=== PATIENT | female | born 1970 | race Caucasian/White ===

== ENCOUNTER 2016-04-11 11:30 | Emergency (ER) | payer BC, OTHER ==
[2016-04-11 11:42] VITALS: TEMP 97.8; BMI 25.0
--- NOTE | 2016-04-11 14:23 | PDOC ---
*Physical Exam - Vital Signs Last Vital Signs Temp Pulse Resp BP Pulse Ox 97.8 F 146/83 100 04/11/16 11:37 04/11/16 11:37 04/11/16 11:37 - Physical Exam Comments: 04/11/16 14:23 MIDLEVEL NOTE Pt seen by Midlevel Provider under my direct supervision. Pt interviewed and examined. Ancillary studies reviewed. I agree with plan as outlined by Midlevel Provider. 04/11/16 16:36 Laboratory Results - last 24 hr 04/11/16 04/11/16 14:50 14:50 WBC 9.3 RBC 4.69 Hgb 9.1 L Hct 30.1 L MCV 64.1 L MCHC 30.2 L RDW 19.0 H Plt Count 433 MPV 8.3 Neutrophils % 66.2 Lymphocytes % 24.7 Monocytes % 5.8 Eosinophils % 1.1 Basophils % 2.2 H Platelet Estimate Increased Platelet Comment No clumping noted Polychromasia 1+ Hypochromic-Microcytic 3+ Poikilocytosis 1+ Anisocytosis 1+ Microcytosis 2+ Target Cells Few Ovalocytes 1+ Sodium 139 Potassium 4.1 Chloride 105 Carbon Dioxide 24 Anion Gap 10 BUN 11 Creatinine 0.7 Creat Clearance w eGFR > 60 Random Glucose 84 Calcium 8.9 Total Bilirubin 0.3 AST 20 ALT 24 Alkaline Phosphatase 63 Creatine Kinase 122 Troponin I < 0.02 Total Protein 7.9 Albumin 4.0 EKG Normal sinus rhythm 76, normal axis Normal AV and IV conduction time Normal QTC Normal EKG 04/11/16 16:37 ED Treatment Course - LABORATORY CBC & Chemistry Diagram: 04/11/16 14:50 04/11/16 14:50 *DC/Admit/Observation/Transfer Diagnosis at time of Disposition: Spasmodic midsternal pain GERD (gastroesophageal reflux disease) Qualifiers: Esophagitis presence: esophagitis presence not specified Qualified Code(s): K21.9 - Gastro-esophageal reflux disease without esophagitis - Discharge Dispostion Disposition: HOME Condition at time of disposition: Improved - Prescriptions Prescriptions: Pantoprazole Sodium [Protonix] 40 mg PO DAILY #30 tablet.dr - Referrals Referrals: Lenny Downing MD [Primary Care Provider] - Desean Mistry DO [Staff Physician] - - Patient Instructions Printed Discharge Instructions: DI for Gastroesophageal Reflux Disease (GERD) Additional Instructions: Please take Protonix as recommended until you follow up with referred signalling and communications engineer. Avoid laying down half hour after eating and drinking plenty of fluids. Avoid spicy greasy food. - Post Discharge Activity Work/School Note: Back to Work
[2016-04-11] MEDS ORDERED: KETOROLAC TROMETHAMINE 30 MG/1 ML VIAL IVPUSH ONE (14:45)
[2016-04-11] MEDS ORDERED: FAMOTIDINE 20 MG/50 ML IVPB 20 MG in PREMIX 50 IVPB ONE (14:45)
--- NOTE | 2016-04-11 15:06 | PDOC ---
History of Present Illness - General Chief Complaint: Chest Pain Stated Complaint: CHEST PAIN Time Seen by Provider: 04/11/16 14:15 History Source: Patient Exam Limitations: No Limitations - History of Present Illness Initial Comments: 04/11/16 15:00 46-year-old female presents to the ED with complaints of epigastric burning radiating to her chest now her left shoulder for the past 2 weeks. Patient states initially pain began one month ago and did not see her PCP she she thought it would get better. Patient states pain is worsened with lying down and better with standing up and worsened at night. Patient also states pain radiates to her throat but denies any acidic taste in her mouth. Patient denies palpitations, shortness of breath, lightheadedness, nausea, or diaphoresis with episodes. Timing/Duration: changing over time Severity: moderate Associated Symptoms: reports: chest pain Past History - Past Medical History Allergies/Adverse Reactions: Allergies Allergy/AdvReac Type Severity Reaction Status Date / Time No Known Allergies Allergy Verified 04/11/16 11:37 Home Medications: Ambulatory Orders NK [No Known Home Medication] 04/11/16 Other medical history: NONE - Reproductive History LMP Normal: Yes Is Patient Now?: No - Immunization History Immunization Up to Date: No - Psycho/Social/Smoking Cessation Hx Anxiety: No Suicidal Ideation: No Smoking History: Never smoked Have you smoked in the past 12 months: No Information on smoking cessation initiated: No Hx Alcohol Use: No Drug/Substance Use Hx: No Substance Use Type: None Patient Lives Alone: No Lives with/in: spouse/SO Review of Systems - Review of Systems Able to Perform ROS?: Yes Constitutional: No: Symptoms Reported HEENTM: No: Symptoms Reported Respiratory: No: Symptoms reported Cardiac (ROS): Yes: Chest Pain. No: Lightheadedness ABD/GI: Yes: Nausea, Indigestion. No: Abdominal cramping : No: Symptoms Reported Musculoskeletal: No: Symptoms Reported Integumentary: No: Symptoms Reported Neurological: No: Symptoms reported *Physical Exam - Vital Signs Last Vital Signs Temp Pulse Resp BP Pulse Ox 97.8 F 146/83 100 04/11/16 11:37 04/11/16 11:37 04/11/16 11:37 - Physical Exam General Appearance: Yes: Nourished, Appropriately Dressed. No: Apparent Distress HEENT: positive: EOMI, ASPEN, Pharynx Normal. negative: Pale Conjunctivae Neck: positive: Normal Thyroid, Supple. negative: Tender, Lymphadenopathy (R), Lymphadenopathy (L) Respiratory/Chest: positive: Lungs Clear, Normal Breath Sounds. negative: Chest Tender, Respiratory Distress, Accessory Muscle Use Cardiovascular: positive: Regular Rhythm, Regular Rate. negative: Murmur Gastrointestinal/Abdominal: positive: Normal Bowel Sounds, Soft, Tenderness ( epigastric). negative: Distended Musculoskeletal: negative: CVA Tenderness Extremity: positive: Normal Capillary Refill. negative: Pedal Edema Integumentary: positive: Normal Color, Warm, Moist Neurologic: positive: Motor Strength 5/5 (ambulatory) Heart Score/ECG Review - ECG Intrepretation Rhythm: Regular Rhythm (rate 76 sinus rhythm. No acute findings. No ST depression or elevation noted) ED Treatment Course - LABORATORY CBC & Chemistry Diagram: 04/11/16 14:50 04/11/16 14:50 - RADIOLOGY Radiology Studies Ordered: Category Date Time Status CHEST X-RAY PORTABLE* [RAD] Stat Radiology 04/11/16 14:45 Ordered Medical Decision Making - Medical Decision Making 04/11/16 15:07 Patient with ongoing epigastric pain radiating to her throat for the past week but worsening over the past few days. Patient denies history of GERD, change in diet, recent illness, recent travel. Patient was ordered for CBC, comp, cardiac profile, TSH Toradol, Pepcid, and IV fluids. Patient also ordered for chest x- ray. This is likely related to GERD with possibly esophageal spasm but will rule out ACS and thyroid disorder 04/11/16 18:13 Laboratory Tests 04/11/16 04/11/16 04/11/16 14:50 14:50 15:10 WBC 9.3 Hgb 9.1 L Hct 30.1 L MCV 64.1 L Plt Count 433 Neutrophils % 66.2 Basophils % 2.2 H Sodium 139 Potassium 4.1 Chloride 105 Carbon Dioxide 24 Anion Gap 10 BUN 11 Random Glucose 84 AST 20 ALT 24 Troponin I < 0.02 TSH 2.04 Chest x-ray shows begins with right upper with no acute pathology. There is also questionable left base granuloma. Patient will be discharged to follow-up with her PCP and will be given a prescription for Protonix. GI referral also enclosed *DC/Admit/Observation/Transfer Diagnosis at time of Disposition: Spasmodic midsternal pain Gastroesophageal reflux disease Qualifiers: Esophagitis presence: esophagitis presence not specified Qualified Code(s): K21.9 - Gastro-esophageal reflux disease without esophagitis - Discharge Dispostion Disposition: HOME Condition at time of disposition: Improved - Referrals Referrals: Lenny Downing MD [Primary Care Provider] - Desean Mistry DO [Staff Physician] - - Patient Instructions Printed Discharge Instructions: DI for Gastroesophageal Reflux Disease (GERD) Additional Instructions: Please take Protonix as recommended until you follow up with referred procurement clerk. Avoid laying down half hour after eating and drinking plenty of fluids. Avoid spicy greasy food.
[2016-04-11 15:09] LABS: BASOPHIL 2.2 % (0-2.0); EOSINOPHIL 1.1 % (0-4.5); MCHC 30.2 g/dl (32.0-36.0); MEAN CELL VOLUME 64.1 fl (80-96); MEAN PLT VOLUME 8.3 fl (7.5-11.1); NEUTROPHILS 66.2 % (42.8-82.8); PLATELET COUNT 433 K/MM3 (134-434); WHITE BLOOD COUNT 9.3 K/mm3 (4.0-10.0)
[2016-04-11] MEDS ORDERED: KETOROLAC TROMETHAMINE 30 MG/1 ML VIAL ONE (15:10)
[2016-04-11 15:11] LABS: MCH 19.3 pg (25.7-33.7)
[2016-04-11] MEDS ORDERED: FAMOTIDINE 20 MG/50 ML IVPB 50 ML IVPB ONE (15:11)
[2016-04-11 15:26] LABS: ANION GAP 10 (8-16); BILIRUBIN,TOTAL 0.3 mg/dL (0.2-1.0); CALCIUM 8.9 mg/dL (8.5-10.1); CO2 24 mmol/L (21-32); CREATININE 0.7 mg/dL (0.55-1.02); GLUCOSE,RANDOM 84 mg/dL (74-106); SGOT/AST 20 U/L (15-37); SGPT/ALT 24 U/L (12-78); TOT PROT 7.9 g/dl (6.4-8.2)
[2016-04-11 15:29] LABS: ALK PHOS 63 U/L (45-117); TROPONIN I < 0.02 ng/ml (0.00-0.05)
[2016-04-11 16:26] LABS: ANISOCYTOSIS 1+; HYPOCHROMIA 3+; MICROCYTOSIS 2+; OVALOCYTES 1+; PLATELET ESTIMATE INCREASED (NORMAL); POIKILOCYTOSIS 1+; POLYCHROMASIA 1+; TARGET CELLS FEW
[2016-04-11 18:30] VITALS: BP 139/53; PULSE 63
--- NOTE | 2016-04-12 15:30 | EKG ---
Test Reason : Blood Pressure : / mmHG Vent. Rate : 076 BPM Atrial Rate : 076 BPM P-R Int : 136 ms QRS Dur : 072 ms QT Int : 394 ms P-R-T Axes : 070 022 048 degrees QTc Int : 443 ms POOR DATA QUALITY, INTERPRETATION MAY BE ADVERSELY AFFECTED NORMAL SINUS RHYTHM WITH SINUS ARRHYTHMIA NORMAL ECG NO PREVIOUS ECGS AVAILABLE Confirmed by TRINA GOMEZ MD ([id number]) on 04/12/2016 3:30:23 PM Referred By: Confirmed By:TRINA GOMEZ MD
== END 2016-04-11 18:30 | disposition home or self-care (01) ==
LOC: JER 11:30
PROC: 3E033GC Introduction of Other Therapeutic Substance into Peripheral Vein, Percutaneous Approach (ICD-10-PCS; principal; 2016-04-11)
PROC: 3E0333Z Introduction of Anti-inflammatory into Peripheral Vein, Percutaneous Approach (ICD-10-PCS; 2016-04-11)
DX: R07.89 Other chest pain (principal); K21.9 Gastro-esophageal reflux disease without esophagitis
CPT/HCPCS: 36415; 71010-TC; 80053; 82550; 84443; 84484; 85025; 93005; 93010; 99284-25

== ENCOUNTER 2018-10-29 12:23 | Emergency (ER) | payer OTHER | END 2018-10-29 13:41 | disposition home or self-care (01) | LOC: JER 12:23 → JERFT 13:41 ==